=== PATIENT | male | born 1940 | race Caucasian/White ===

== ENCOUNTER 2022-03-25 23:56 | Inpatient (IN) | payer MEDICARE ==
[2022-03-26 00:56] LABS: #Eosinphils 0.1 thou/uL (0.0-0.7); #Lymphocytes 1.6 thou/uL (1.20-3.40); #Neutrophils 8.2 thou/uL (1.40-6.50); %Basophils 0.1 % (0.0-1.0); %Eosinophils 1.2 % (0.0-10.0); %Lymphocytes 14.8 % (21.0-51.0); %Monocytes 8.9 % (0.0-10.0); Hemoglobin 12.5 g/dL (14.0-18.0); Mean Corpuscular HGB CONC 32.9 g/dL (32.0-36.0); Mean Corpuscular Hemoglobin 30.3 pg (27.0-31.0); Mean Corpuscular Volume 92.2 fl (78.0-98.0); Mean Platelet Volume 6.2 fL (7.4-10.4); Platelet Count 311 10x3/uL (130-400); RBC Distribution Width 13.5 % (11.5-14.5); Red Blood Cell (RBC) Count 4.14 mill/uL (4.70-6.10); White Blood Cell (WBC) Count 10.9 10x3/uL (4.8-10.8)
[2022-03-26 00:59] LABS: ALT (SGPT) 33 U/L (8-55); AST (SGOT) 38 U/L (5-34); Albumin 3.8 g/dL (3.4-4.8); Alkaline Phosphatase 79 U/L (40-110); Anion Gap 14 mmol/L (10-20); BUN (Urea Nitrogen) 21 mg/dL (8.4-25.7); Bilirubin, Total 0.4 mg/dL (0.2-1.2); CK (CPK) 53 U/L (30-200); Calc. Creatinine Clearance 0 mL/min (70-130); Carbon Dioxide 22 mmol/L (23-31); Chloride 107 mmol/L (98-107); Estimated GFR 66; Globulin 1.8 g/dL (2.4-3.5); Glucose 123 mg/dL (83-110); Lipase 28 U/L (8-78); Protein, Total 5.6 g/dL (5.8-8.1); Sodium 139 mmol/L (136-145)
[2022-03-26 01:20] LABS: CKMB 2.2 ng/mL (0-6.6)
[2022-03-26] MEDS ORDERED: Acetaminophen 500 MG TAB ONE (02:36)
[2022-03-26] MEDS ORDERED: Aspirin 325 MG TAB ONE (02:36)
[2022-03-26 03:53] LABS: #Eosinphils 0.1 thou/uL (0.0-0.7); #Lymphocytes 1.4 thou/uL (1.20-3.40); #Monocytes 0.9 thou/uL (0.11-0.59); #Neutrophils 7.7 thou/uL (1.40-6.50); %Basophils 0.1 % (0.0-1.0); %Eosinophils 0.9 % (0.0-10.0); %Lymphocytes 13.5 % (21.0-51.0); %Monocytes 9.1 % (0.0-10.0); %Neutrophils 76.5 % (42.0-75.0); Hemoglobin 12.6 g/dL (14.0-18.0); Mean Corpuscular HGB CONC 33.1 g/dL (32.0-36.0); Mean Corpuscular Hemoglobin 30.3 pg (27.0-31.0); Mean Corpuscular Volume 91.4 fl (78.0-98.0); Mean Platelet Volume 6.1 fL (7.4-10.4); Platelet Count 302 10x3/uL (130-400); RBC Distribution Width 13.3 % (11.5-14.5); Red Blood Cell (RBC) Count 4.16 mill/uL (4.70-6.10); White Blood Cell (WBC) Count 10.1 10x3/uL (4.8-10.8)
[2022-03-26 04:13] LABS: Anion Gap 13 mmol/L (10-20); BUN (Urea Nitrogen) 20 mg/dL (8.4-25.7); Calc. Creatinine Clearance 0 mL/min (70-130); Calcium 9.1 mg/dL (7.8-10.44); Carbon Dioxide 23 mmol/L (23-31); Chloride 107 mmol/L (98-107); Estimated GFR 72; Glucose 96 mg/dL (83-110); Potassium 4.1 mmol/L (3.5-5.1); Sodium 139 mmol/L (136-145)
[2022-03-26] MEDS ORDERED: (Linaclotide [Linzess] 145 MCG Capsule) PO SCH (07:30)
[2022-03-26 07:50] LABS: Troponin I 2.295 ng/mL (< 0.028)
[2022-03-26] MEDS ORDERED: Aspirin Chewable 81 MG TAB ONE (08:47)
[2022-03-26] MEDS: Aspirin 81 mg Enteric Coated Tablet PO SCH (08:51)
[2022-03-26 08:54] LABS: Magnesium 2.2 mg/dL (1.6-2.6)
[2022-03-26] MEDS ORDERED: Ipratropium/Albuterol 3 ML NEB NEB PRN (10:01)
[2022-03-26] MEDS: Lisinopril/Hydrochlorothiazide 10 mg/12.5 mg Tablet PO SCH (10:11)
[2022-03-26] MEDS: Tamsulosin HCl 0.4 MG CAP PO SCH (10:11)
[2022-03-26] MEDS: Rosuvastatin 10 MG TAB PO SCH (10:11)
[2022-03-26 11:50] LABS: SARS-CoV-2 NAA Rapid Test Not Detected (NotDetected)
[2022-03-26] MEDS: Lidocaine 5% Patch TD SCH (15:00)
[2022-03-26] MEDS: Mometasone 200 MCG/Formoterol 5 MCG 120 PUFF INHALER INH SCH (18:35)
[2022-03-26] MEDS ORDERED: Ketorolac Tromethamine 30 MG/ML VIAL IVP SCH (22:30)
[2022-03-27] MEDS: Transdermal Patch Removal TOP SCH (00:04)
[2022-03-27 01:29] VITALS: BMI 28.0
[2022-03-27 06:04] LABS: Critical Call Chem Troponin I RESULT DECREASING; Troponin I 0.563 ng/mL (< 0.028)
[2022-03-27] MEDS: Mometasone 200 MCG/Formoterol 5 MCG 120 PUFF INHALER INH SCH ×2 (06:45→19:11)
[2022-03-27] MEDS: Tamsulosin HCl 0.4 MG CAP PO SCH (09:57)
[2022-03-27] MEDS: Lisinopril/Hydrochlorothiazide 10 mg/12.5 mg Tablet PO SCH (09:57)
[2022-03-27] MEDS: Rosuvastatin 10 MG TAB PO SCH (09:58)
[2022-03-27] MEDS: Aspirin 81 mg Enteric Coated Tablet PO SCH (09:58)
[2022-03-27] MEDS: Lidocaine 5% Patch TD SCH (12:47)
[2022-03-27] MEDS ORDERED: Polyethylene Glycol 3350 17 GM Packet PO PRN (12:59)
[2022-03-27] MEDS ORDERED: Communication Order-Pharmacy FS SCH (14:00)
[2022-03-27] MEDS ORDERED: Acetaminophen 325 MG TAB PO PRN (20:15)
[2022-03-27] MEDS: Senokot S 8.6-50 MG TAB PO SCH (20:23)
[2022-03-28] MEDS: Transdermal Patch Removal TOP SCH ×2 (00:03→21:12)
[2022-03-28 05:31] LABS: #Eosinphils 0.1 thou/uL (0.0-0.7); #Lymphocytes 2.3 thou/uL (1.20-3.40); %Basophils 0.2 % (0.0-1.0); %Eosinophils 1.4 % (0.0-10.0); %Lymphocytes 27.7 % (21.0-51.0); %Monocytes 11.3 % (0.0-10.0); %Neutrophils 59.3 % (42.0-75.0); Hemoglobin 13.3 g/dL (14.0-18.0); Mean Corpuscular HGB CONC 33.2 g/dL (32.0-36.0); Mean Corpuscular Hemoglobin 30.5 pg (27.0-31.0); Mean Platelet Volume 6.3 fL (7.4-10.4); Platelet Count 296 10x3/uL (130-400); RBC Distribution Width 13.4 % (11.5-14.5); Red Blood Cell (RBC) Count 4.36 mill/uL (4.70-6.10); White Blood Cell (WBC) Count 8.5 10x3/uL (4.8-10.8)
[2022-03-28 05:52] LABS: Anion Gap 11 mmol/L (10-20); BUN (Urea Nitrogen) 18 mg/dL (8.4-25.7); Calc. Creatinine Clearance 61 mL/min (70-130); Calcium 9.8 mg/dL (7.8-10.44); Carbon Dioxide 26 mmol/L (23-31); Cardiac Risk 2.9 (Less than 4.5); Chloride 104 mmol/L (98-107); Cholesterol 152 mg/dl (< 200 Desired); Estimated GFR 62; Glucose 95 mg/dL (83-110); HDL Cholesterol 52 mg/dL (>60 Neg Risk); LDL Cholesterol, Calculated 81 mg/dL; Potassium 4.2 mmol/L (3.5-5.1); Sodium 137 mmol/L (136-145); Triglycerides 97 mg/dL (Less than 150)
[2022-03-28] MEDS ORDERED: Sodium Chloride 0.9% 1,000 ML IV SCH ×2 (06:00→08:27)
[2022-03-28] MEDS ORDERED: Heparin 10,000 UNITS/ 10 ML VIAL ONE (06:32)
[2022-03-28] MEDS ORDERED: Lidocaine 1% (PF) 30 ML VIAL ONE ×2 (06:32→07:26)
[2022-03-28] MEDS ORDERED: Nitroglycerin 100MG/250ML BOT 0 ML ONE (06:32)
[2022-03-28] MEDS ORDERED: Midazolam HCl 2 mg/2 ml Vial ONE (07:12)
[2022-03-28] MEDS ORDERED: FENTANYL 50 MCG/ML 1 ML VIAL ONE (07:12)
[2022-03-28] MEDS: Mometasone 200 MCG/Formoterol 5 MCG 120 PUFF INHALER INH SCH ×2 (07:28→19:00)
[2022-03-28] MEDS ORDERED: Protamine Sulfate 50 MG/5 ML VIAL ONE (08:00)
[2022-03-28] MEDS ORDERED: Nitroglycerin 0.4 MG TAB (25 Tab Bottle) SL PRN (08:26)
[2022-03-28] MEDS ORDERED: Sodium Chloride 0.9% 200 ML IV PRN (08:26)
[2022-03-28] MEDS ORDERED: Acetaminophen/Codeine 30-300mg Tablet PO PRN ×2 (08:26)
[2022-03-28] MEDS: Furosemide 20 MG TAB PO SCH (09:39)
[2022-03-28] MEDS: Aspirin 81 mg Enteric Coated Tablet PO SCH (09:39)
[2022-03-28] MEDS: Tamsulosin HCl 0.4 MG CAP PO SCH (09:39)
[2022-03-28] MEDS ORDERED: HYDROcodone/Acetaminophen 5/325 mg Tablet PO PRN (09:40)
[2022-03-28] MEDS: Lisinopril 10 MG TAB PO SCH (09:41)
[2022-03-28] MEDS: Senokot S 8.6-50 MG TAB PO SCH ×2 (09:41→21:10)
[2022-03-28] MEDS: Lidocaine 5% Patch TD SCH (14:12)
[2022-03-28] MEDS: Rosuvastatin 20 MG TAB PO SCH (21:10)
[2022-03-29] MEDS: Mometasone 200 MCG/Formoterol 5 MCG 120 PUFF INHALER INH SCH ×2 (07:42→19:17)
[2022-03-29] MEDS: Aspirin 81 mg Enteric Coated Tablet PO SCH (08:49)
[2022-03-29] MEDS: Senokot S 8.6-50 MG TAB PO SCH ×2 (08:57→21:03)
[2022-03-29] MEDS: Tamsulosin HCl 0.4 MG CAP PO SCH (08:59)
[2022-03-29] MEDS ORDERED: Iopamidol 370 76% 50 ML VIAL FS ONE (09:04)
[2022-03-29] MEDS: Lisinopril 10 MG TAB PO SCH (09:10)
[2022-03-29] MEDS: Lidocaine 5% Patch TD SCH (09:11)
[2022-03-29] MEDS ORDERED: Cyclobenzaprine 10 MG TAB PO PRN (10:22)
[2022-03-29] MEDS ORDERED: Cyclobenzaprine 10 MG TAB PO SCH (10:30)
[2022-03-29] MEDS ORDERED: Ketorolac Tromethamine 30 MG/ML VIAL IVP SCH (10:30)
[2022-03-29] MEDS ORDERED: Midazolam HCl 2 mg/2 ml Vial ONE (11:41)
[2022-03-29] MEDS ORDERED: fentaNYL PF 100 MCG/2 ML SYRINGE ONE (11:41)
[2022-03-29] MEDS ORDERED: Ketamine 50 MG/ML (10ML VIAL) ONE (11:41)
[2022-03-29] MEDS ORDERED: Gentamicin 80 MG/2 ML VIAL ONE (11:48)
[2022-03-29] MEDS ORDERED: CEFAZOLIN 2 GM VIAL ONE ×2 (11:49→11:50)
[2022-03-29] MEDS ORDERED: Lidocaine 1% (PF) 30 ML VIAL ONE (11:49)
[2022-03-29] MEDS ORDERED: Ondansetron PF 4 MG/2 ML Vial ONE (12:15)
[2022-03-29] MEDS ORDERED: PROPOFOL 200 MG/20 ML VIAL ONE (12:15)
[2022-03-29] MEDS ORDERED: Lidocaine 1% PF 5 ML VIAL ONE (12:15)
[2022-03-29] MEDS ORDERED: PHENYLEPHRINE-NS 100 MCG/ML 10 ML SYRINGE ONE (12:15)
[2022-03-29] MEDS ORDERED: Morphine Sulfate 2 MG/ML SYRINGE SLOW IVP PRN (14:40)
[2022-03-29] MEDS ORDERED: Promethazine HCl 25 MG/ML VIAL IM PRN (14:40)
[2022-03-29] MEDS ORDERED: Ondansetron HCl/PF 4 MG/2 ML Vial IVP PRN (14:40)
[2022-03-29] MEDS: Furosemide 20 MG TAB PO SCH (16:22)
[2022-03-29] MEDS: Rosuvastatin 20 MG TAB PO SCH (21:03)
[2022-03-29] MEDS: Transdermal Patch Removal TOP SCH (21:04)
[2022-03-30] MEDS: Mometasone 200 MCG/Formoterol 5 MCG 120 PUFF INHALER INH SCH (07:55)
[2022-03-30] MEDS: Aspirin 81 mg Enteric Coated Tablet PO SCH (09:20)
[2022-03-30] MEDS: Senokot S 8.6-50 MG TAB PO SCH (09:20)
[2022-03-30] MEDS: Furosemide 20 MG TAB PO SCH (09:20)
[2022-03-30] MEDS: Tamsulosin HCl 0.4 MG CAP PO SCH (09:20)
[2022-03-30] MEDS: Lisinopril 10 MG TAB PO SCH (09:21)
[2022-03-30] MEDS: Lidocaine 5% Patch TD SCH (10:57)
[2022-03-30 11:39] VITALS: BP 102/68; TEMP 98.1
[2022-03-30] MEDS ORDERED: Carvedilol 3.125 MG TAB PO SCH (17:00)
== END 2022-03-30 14:50 | disposition home or self-care (01) | DRG 225 ==
LOC: ERS 23:56 → ERHOLD 03-26 02:34 → NEURO 03-26 21:32
PROVIDERS: ADMIT Family Medicine; ATTEND Family Medicine
PROC: 4A023N7 Measurement of Cardiac Sampling and Pressure, Left Heart, Percutaneous Approach (ICD-10-PCS; principal; 2022-03-28)
PROC: B2111ZZ Fluoroscopy of Multiple Coronary Arteries using Low Osmolar Contrast (ICD-10-PCS; 2022-03-28)
PROC: B2151ZZ Fluoroscopy of Left Heart using Low Osmolar Contrast (ICD-10-PCS; 2022-03-28)
PROC: 5A2204Z Restoration of Cardiac Rhythm, Single (ICD-10-PCS; 2022-03-28)
PROC: 0JH608Z Insertion of Defibrillator Generator into Chest Subcutaneous Tissue and Fascia, Open Approach (ICD-10-PCS; 2022-03-29)
PROC: 02H60KZ Insertion of Defibrillator Lead into Right Atrium, Open Approach (ICD-10-PCS; 2022-03-29)
PROC: 02HK0KZ Insertion of Defibrillator Lead into Right Ventricle, Open Approach (ICD-10-PCS; 2022-03-29)
DX: I47.20 Ventricular tachycardia, unspecified (principal); Z20.822 Contact with and (suspected) exposure to COVID-19; I10 Essential (primary) hypertension; K21.9 Gastro-esophageal reflux disease without esophagitis; E78.5 Hyperlipidemia, unspecified; F17.210 Nicotine dependence, cigarettes, uncomplicated; J44.9 Chronic obstructive pulmonary disease, unspecified; I48.0 Paroxysmal atrial fibrillation; I25.10 Atherosclerotic heart disease of native coronary artery without angina pectoris; I49.5 Sick sinus syndrome; Z79.82 Long term (current) use of aspirin; Z79.51 Long term (current) use of inhaled steroids; Z79.899 Other long term (current) drug therapy; Z79.52 Long term (current) use of systemic steroids
CPT/HCPCS: 33249; 36415; 71045; 80048; 80053; 80061; 82550; 82553; 83690; 83735; 83880; 84443; 84484; 85025; 85347; 93005; 93306; 93460; 93641; 94760; 99152; 99153; C1751; C1769; C1777; C1894; C1898; J1580; J1644; J1650; J1885; J2001; J2250; J2405; J2704; J2720; J3010; J7050; Q9967; U0002

== ENCOUNTER 2022-11-30 13:04 | Outpatient (CLI) | payer MEDICARE | END 2022-11-30 13:05 | disposition home or self-care (01) | LOC: RAD 13:04 | PROVIDERS: ATTEND Internal Medicine Critical Care Medicine | DX: R06.00 Dyspnea, unspecified (principal); J98.4 Other disorders of lung | CPT/HCPCS: 71046 ==

== ENCOUNTER 2022-12-11 08:30 | Outpatient (CLI) | payer MEDICARE ==
[2022-12-11] MEDS ORDERED: Iopamidol 370 76% 100 ML VIAL ONE (09:51)
== END 2022-12-11 08:31 | disposition home or self-care (01) ==
LOC: CT 08:30
PROVIDERS: ATTEND Thoracic Surgery (Cardiothoracic Vascular Surgery)
DX: I71.40 Abdominal aortic aneurysm, without rupture, unspecified (principal); K44.9 Diaphragmatic hernia without obstruction or gangrene; D35.02 Benign neoplasm of left adrenal gland; N28.1 Cyst of kidney, acquired; N40.0 Benign prostatic hyperplasia without lower urinary tract symptoms
CPT/HCPCS: 74174; 82565; Q9967

== ENCOUNTER 2023-02-06 12:09 | Outpatient (CLI) | payer MEDICARE | END 2023-02-06 12:10 | disposition home or self-care (01) | LOC: RAD 12:09 | PROVIDERS: ATTEND Internal Medicine Critical Care Medicine | DX: R06.00 Dyspnea, unspecified (principal) | CPT/HCPCS: 36415; 71046; 82550; 84443 ==

== ENCOUNTER 2023-08-21 07:06 | Day surgery (SDC) | payer MEDICARE ==
[2023-08-20 10:11] VITALS: BMI 27.5
[2023-08-21] MEDS ORDERED: Lidocaine 2% PF 5 ML VIAL ONE (10:33)
[2023-08-21] MEDS ORDERED: PHENYLEPHRINE-NS 100 MCG/ML 10 ML SYRINGE ONE (10:46)
[2023-08-21] MEDS ORDERED: PROPOFOL 200 MG/20 ML VIAL ONE (10:46)
== END 2023-08-21 11:44 | disposition home or self-care (01) ==
LOC: SDC 07:06
PROVIDERS: ATTEND Internal Medicine Gastroenterology
PROC: 0DB68ZX Excision of Stomach, Via Natural or Artificial Opening Endoscopic, Diagnostic (ICD-10-PCS; principal; 2023-08-21)
DX: K29.50 Unspecified chronic gastritis without bleeding (principal); K31.89 Other diseases of stomach and duodenum; K44.9 Diaphragmatic hernia without obstruction or gangrene; I10 Essential (primary) hypertension; E78.5 Hyperlipidemia, unspecified; J44.9 Chronic obstructive pulmonary disease, unspecified; I48.91 Unspecified atrial fibrillation; Z95.810 Presence of automatic (implantable) cardiac defibrillator; Z79.82 Long term (current) use of aspirin; Z79.899 Other long term (current) drug therapy
CPT/HCPCS: 43239; J2001; 88305; J2704

== ENCOUNTER 2023-12-06 18:18 | Inpatient (IN) | payer MEDICARE ==
[~2023-12-06 18:18] MED LIST: Acetaminophen 325 MG TAB PO PRN; Ondansetron ODT 4 MG TAB SL PRN; Ondansetron PF 4 MG/2 ML Vial IVP PRN
[2023-12-06 22:27] VITALS: BMI 26.7
[2023-12-06] MEDS: Metoprolol Tartrate 5 MG (5 mL) VIAL IVP PRN (22:51)
[2023-12-07 03:50] LABS: #Basophils 0.06 10x3/uL (0.0-0.2); %Basophils 0.8 % (0.0-1.0); %Lymphocytes 27.1 % (21.0-51.0); %Monocytes 12.7 % (0.0-10.0); %Neutrophils 57.1 % (42.0-75.0); Hemoglobin 11.8 g/dL (14.0-18.0); Mean Corpuscular HGB CONC 31.1 g/dL (32.0-36.0); Mean Corpuscular Hemoglobin 25.9 pg (27.0-31.0); Mean Corpuscular Volume 83.3 fL (78.0-98.0); Mean Platelet Volume 9.4 fL (7.4-10.4); Platelet Count 222 10x3/uL (130-400); RBC Distribution Width 15.8 % (11.5-14.5); Red Blood Cell (RBC) Count 4.56 mill/uL (4.70-6.10)
[2023-12-07 04:06] LABS: Anion Gap 11 mmol/L (10-20); BUN (Urea Nitrogen) 22 mg/dL (8.4-25.7); Calc. Creatinine Clearance 56 mL/min (70-130); Carbon Dioxide 24 mmol/L (23-31); Chloride 111 mmol/L (98-107); Estimated GFR 61; Glucose 91 mg/dL (83-110); Sodium 142 mmol/L (136-145)
[2023-12-07] MEDS: Enoxaparin 80 MG (0.8 mL) SYRINGE SC SCH (06:53)
[2023-12-07] MEDS ORDERED: Enoxaparin 40 MG (0.4 mL) SYRINGE SC SCH (09:00)
[2023-12-07] MEDS ORDERED: dilTIAZem 125 MG in Sodium Chloride 0.9% 100 ML IVPB SCH (10:00)
[2023-12-07] MEDS: Sacubitril 24MG/Valsartan 26 MG TAB PO SCH (10:52)
[2023-12-07] MEDS: Dronedarone HCl 400 MG TAB PO SCH ×2 (10:53→17:41)
[2023-12-07] MEDS: Clopidogrel Bisulfate 75 MG TAB PO SCH (10:53)
[2023-12-07] MEDS ORDERED: Albuterol 2.5 MG (3 mL) NEB NEB PRN (11:53)
[2023-12-07] MEDS ORDERED: Linaclotide [Linzess] 145 MCG Capsule PO PRN (11:53)
[2023-12-07] MEDS: Furosemide 20 MG (2 mL) VIAL SLOW IVP SCH (13:40)
[2023-12-07] MEDS: Diltiazem HCl/D5W 125 MG in Premix 1 BAG IVPB SCH (13:40)
[2023-12-07] MEDS: Pantoprazole 40 MG VIAL IVP SCH (20:10)
[2023-12-07] MEDS: Rosuvastatin 10 MG TAB PO SCH (20:10)
[2023-12-07] MEDS: Tamsulosin HCl 0.4 MG CAP PO SCH (20:10)
[2023-12-07] MEDS ORDERED: Enoxaparin 80 MG (0.8 mL) SYRINGE SC SCH (21:00)
[2023-12-08 03:45] LABS: #Basophils 0.04 10x3/uL (0.0-0.2); #Eosinophils Less than 0.03 10x3/uL (0.0-0.7); %Basophils 0.3 % (0.0-1.0); %Eosinophils 0.1 % (0.0-10.0); %Monocytes 7.3 % (0.0-10.0); %Neutrophils 83.9 % (42.0-75.0); Hematocrit 38.1 % (42.0-52.0); Hemoglobin 11.9 g/dL (14.0-18.0); Mean Corpuscular HGB CONC 31.2 g/dL (32.0-36.0); Mean Corpuscular Hemoglobin 25.8 pg (27.0-31.0); Mean Corpuscular Volume 82.6 fL (78.0-98.0); Mean Platelet Volume 9.3 fL (7.4-10.4); Platelet Count 208 10x3/uL (130-400); RBC Distribution Width 15.7 % (11.5-14.5); Red Blood Cell (RBC) Count 4.61 mill/uL (4.70-6.10)
[2023-12-08 04:01] LABS: ALT (SGPT) 10 U/L (8-55); AST (SGOT) 11 U/L (5-34); Albumin 3.6 g/dL (3.4-4.8); Alkaline Phosphatase 97 U/L (40-110); Anion Gap 14 mmol/L (10-20); BUN (Urea Nitrogen) 19 mg/dL (8.4-25.7); Bilirubin, Total 0.6 mg/dL (0.2-1.2); Calc. Creatinine Clearance 55 mL/min (70-130); Carbon Dioxide 23 mmol/L (23-31); Chloride 105 mmol/L (98-107); Estimated GFR 60; Globulin 2.4 g/dL (2.4-3.5); Glucose 106 mg/dL (83-110); Potassium 3.9 mmol/L (3.5-5.1); Sodium 138 mmol/L (136-145)
[2023-12-08] MEDS: Empagliflozin 10 MG TAB PO SCH (07:53)
[2023-12-08] MEDS: Enoxaparin 40 MG (0.4 mL) SYRINGE SC SCH (08:42)
[2023-12-08] MEDS: Ranolazine ER 500 MG TAB PO SCH (08:43)
[2023-12-08] MEDS: Pantoprazole 40 MG VIAL IVP SCH (08:44)
[2023-12-08] MEDS ORDERED: Empagliflozin 10 MG TAB PO SCH (09:00)
[2023-12-08] MEDS: Furosemide 10 MG/ML Oral Soln PO SCH (09:32)
[2023-12-08] MEDS ORDERED: Acetaminophen 325 MG (10.15 ML) UDCUP PO SCH (10:00)
[2023-12-08 10:14] LABS: Magnesium 2.1 mg/dL (1.6-2.6)
[2023-12-08] MEDS: Acetaminophen 650 MG/20.3 ML UDCUP PO SCH (10:32)
[2023-12-09 04:58] LABS: #Basophils Less than 0.03 10x3/uL (0.0-0.2); %Basophils 0.2 % (0.0-1.0); %Eosinophils 0.3 % (0.0-10.0); %Lymphocytes 9.1 % (21.0-51.0); %Monocytes 8.9 % (0.0-10.0); %Neutrophils 81.1 % (42.0-75.0); Hematocrit 35.6 % (42.0-52.0); Mean Corpuscular HGB CONC 30.9 g/dL (32.0-36.0); Mean Corpuscular Hemoglobin 26.3 pg (27.0-31.0); Mean Corpuscular Volume 85.2 fL (78.0-98.0); Mean Platelet Volume 9.4 fL (7.4-10.4); Platelet Count 208 10x3/uL (130-400); RBC Distribution Width 15.5 % (11.5-14.5); Red Blood Cell (RBC) Count 4.18 mill/uL (4.70-6.10)
[2023-12-09 05:14] LABS: Anion Gap 13 mmol/L (10-20); BUN (Urea Nitrogen) 20 mg/dL (8.4-25.7); Calc. Creatinine Clearance 52 mL/min (70-130); Calcium 8.8 mg/dL (7.8-10.44); Carbon Dioxide 23 mmol/L (23-31); Chloride 105 mmol/L (98-107); Estimated GFR 57; Glucose 97 mg/dL (83-110); Potassium 3.8 mmol/L (3.5-5.1); Sodium 137 mmol/L (136-145)
[2023-12-09] MEDS: Pantoprazole DR 40 MG TAB PO SCH (08:58)
[2023-12-09] MEDS: FLU (Fluad Triv) TS24-25 (65UP)/MF59C/PF 45 MCG/0.5 ML Syringe IM ONE (09:00)
[2023-12-09] MEDS: Acetaminophen 325 MG TAB PO PRN (13:53)
[2023-12-10 05:33] LABS: #Basophils 0.04 10x3/uL (0.0-0.2); %Basophils 0.4 % (0.0-1.0); %Eosinophils 1.2 % (0.0-10.0); %Lymphocytes 12.7 % (21.0-51.0); %Monocytes 9.1 % (0.0-10.0); %Neutrophils 76.2 % (42.0-75.0); Hematocrit 34.1 % (42.0-52.0); Hemoglobin 10.6 g/dL (14.0-18.0); Mean Corpuscular HGB CONC 31.1 g/dL (32.0-36.0); Mean Corpuscular Hemoglobin 26.6 pg (27.0-31.0); Mean Corpuscular Volume 85.5 fL (78.0-98.0); Mean Platelet Volume 9.6 fL (7.4-10.4); Platelet Count 222 10x3/uL (130-400); RBC Distribution Width 15.6 % (11.5-14.5); Red Blood Cell (RBC) Count 3.99 mill/uL (4.70-6.10)
[2023-12-10 05:39] LABS: Anion Gap 12 mmol/L (10-20); BUN (Urea Nitrogen) 18 mg/dL (8.4-25.7); Calc. Creatinine Clearance 57 mL/min (70-130); Calcium 8.8 mg/dL (7.8-10.44); Carbon Dioxide 24 mmol/L (23-31); Chloride 106 mmol/L (98-107); Estimated GFR 63; Glucose 86 mg/dL (83-110); Potassium 3.7 mmol/L (3.5-5.1); Sodium 138 mmol/L (136-145)
[2023-12-10] MEDS: dilTIAZem CD 120 MG CAP PO SCH (09:18)
[2023-12-10 12:08] VITALS: BP 107/61; TEMP 97.7
== END 2023-12-10 14:57 | disposition home or self-care (01) | DRG 280 ==
LOC: 2SE 21:34 → OBSVTOIN 12-07 11:49
PROVIDERS: ADMIT Student in an Organized Health Care Education/Training Program; ATTEND Internal Medicine
DX: I48.0 Paroxysmal atrial fibrillation (principal); I50.33 Acute on chronic diastolic (congestive) heart failure; I21.4 Non-ST elevation (NSTEMI) myocardial infarction; I11.0 Hypertensive heart disease with heart failure; J44.9 Chronic obstructive pulmonary disease, unspecified; I27.20 Pulmonary hypertension, unspecified; I25.10 Atherosclerotic heart disease of native coronary artery without angina pectoris; Z79.899 Other long term (current) drug therapy; F17.210 Nicotine dependence, cigarettes, uncomplicated
CPT/HCPCS: 36415; 36416; 80048; 80053; 83735; 83880; 85025; 90653; 93005; 93010; 93306; 96372; 96374; G0378; J1650; J1940; J2470

== ENCOUNTER 2024-01-15 11:43 | Outpatient (CLI) | payer MEDICARE | END 2024-01-15 11:44 | disposition home or self-care (01) | LOC: CT 11:43 | PROVIDERS: ATTEND Thoracic Surgery (Cardiothoracic Vascular Surgery) | DX: I71.40 Abdominal aortic aneurysm, without rupture, unspecified (principal); K44.9 Diaphragmatic hernia without obstruction or gangrene; N40.0 Benign prostatic hyperplasia without lower urinary tract symptoms; E27.8 Other specified disorders of adrenal gland | CPT/HCPCS: 74174 ==

== ENCOUNTER 2024-02-07 10:58 | Outpatient (CLI) | payer MEDICARE | END 2024-02-07 10:59 | disposition home or self-care (01) | LOC: RAD 10:58 | PROVIDERS: ATTEND Internal Medicine Critical Care Medicine | DX: R06.00 Dyspnea, unspecified (principal) | CPT/HCPCS: 71046 ==

== ENCOUNTER 2024-03-02 16:08 | Inpatient (IN) | payer MEDICARE ==
[2024-03-02 17:10] VITALS: BMI 27.1
[2024-03-02] MEDS ORDERED: Acetaminophen 325 MG TAB PO PRN (17:33)
[2024-03-02] MEDS ORDERED: Acetaminophen 650 MG Suppository PR PRN (17:33)
[2024-03-02] MEDS ORDERED: Ondansetron ODT 4 MG TAB PO PRN (17:33)
[2024-03-02] MEDS ORDERED: Ipratropium/Albuterol 3 ML NEB NEB PRN (17:43)
[2024-03-02] MEDS: Ipratropium/Albuterol 3 ML NEB NEB SCH (18:55)
[2024-03-02] MEDS: Furosemide 40 MG (4 mL) VIAL SLOW IVP SCH (19:07)
[2024-03-02] MEDS: methylPREDNISolone Sod Succ 40 MG VIAL IVP SCH (19:07)
[2024-03-02] MEDS ORDERED: Famotidine 20 MG TAB PO SCH (21:00)
[2024-03-02] MEDS ORDERED: Famotidine/PF 20 mg/2ml Vial SLOW IVP SCH (21:00)
[2024-03-02] MEDS: Tamsulosin HCl 0.4 MG CAP PO SCH (21:20)
[2024-03-02] MEDS: guaiFENesin/DM ER PO SCH (21:20)
[2024-03-02 21:47] LABS: Legionella Urinary Ag Negative (Negative); Strep pneumo Urine Ag NEGATIVE (NEGATIVE)
[2024-03-03] MEDS: Melatonin 3 MG TAB PO PRN (00:47)
[2024-03-03 04:48] LABS: #Basophils Less than 0.03 10x3/uL (0.0-0.2); #Eosinophils Less than 0.03 10x3/uL (0.0-0.7); %Lymphocytes 6.5 % (21.0-51.0); %Monocytes 1.4 % (0.0-10.0); %Neutrophils 91.3 % (42.0-75.0); Hematocrit 38.1 % (42.0-52.0); Hemoglobin 11.6 g/dL (14.0-18.0); Mean Corpuscular HGB CONC 30.4 g/dL (32.0-36.0); Mean Corpuscular Hemoglobin 25.3 pg (27.0-31.0); Mean Corpuscular Volume 83.2 fL (78.0-98.0); Mean Platelet Volume 9.1 fL (7.4-10.4); Platelet Count 304 10x3/uL (130-400); RBC Distribution Width 15.1 % (11.5-14.5); Red Blood Cell (RBC) Count 4.58 mill/uL (4.70-6.10)
[2024-03-03 04:54] LABS: Anion Gap 12 mmol/L (10-20); BUN (Urea Nitrogen) 21 mg/dL (8.4-25.7); Calc. Creatinine Clearance 61 mL/min (70-130); Calcium 8.8 mg/dL (7.8-10.44); Carbon Dioxide 27 mmol/L (23-31); Chloride 104 mmol/L (98-107); Estimated GFR 66; Glucose 138 mg/dL (83-110); Potassium 4.3 mmol/L (3.5-5.1); Sodium 139 mmol/L (136-145)
[2024-03-03] MEDS: Furosemide 20 MG TAB PO SCH (08:22)
[2024-03-03] MEDS: Ranolazine ER 500 MG TAB PO SCH (08:22)
[2024-03-03] MEDS: Empagliflozin 10 MG TAB PO SCH (08:22)
[2024-03-03] MEDS: Clopidogrel Bisulfate 75 MG TAB PO SCH (08:22)
[2024-03-03] MEDS: Rosuvastatin 10 MG TAB PO SCH (08:22)
[2024-03-03] MEDS: Pantoprazole 40 MG DR.TAB PO SCH (08:22)
[2024-03-03] MEDS: dilTIAZem CD 120 MG CAP PO SCH (08:23)
[2024-03-03] MEDS: Azithromycin 500 MG in Sodium Chloride 0.9% 250 ML 250 ML IVPB SCH (08:23)
[2024-03-03] MEDS: cefTRIAXone\\ROCEPHIN 1 GM in Sodium Chloride 0.9% 100 ML IVPB SCH (08:23)
[2024-03-03] MEDS ORDERED: dilTIAZem CD 120 MG CAP PO SCH (09:00)
[2024-03-03] MEDS: Furosemide 40 MG TAB PO SCH (10:18)
[2024-03-04 04:44] LABS: #Basophils Less than 0.03 10x3/uL (0.0-0.2); #Eosinophils Less than 0.03 10x3/uL (0.0-0.7); %Basophils 0.1 % (0.0-1.0); %Lymphocytes 6.3 % (21.0-51.0); %Monocytes 4.5 % (0.0-10.0); %Neutrophils 88.5 % (42.0-75.0); Hematocrit 36.1 % (42.0-52.0); Hemoglobin 11.3 g/dL (14.0-18.0); Mean Corpuscular HGB CONC 31.3 g/dL (32.0-36.0); Mean Corpuscular Hemoglobin 25.5 pg (27.0-31.0); Mean Corpuscular Volume 81.5 fL (78.0-98.0); Mean Platelet Volume 9.3 fL (7.4-10.4); Platelet Count 305 10x3/uL (130-400); Red Blood Cell (RBC) Count 4.43 mill/uL (4.70-6.10)
[2024-03-04 05:01] LABS: Anion Gap 10 mmol/L (10-20); BUN (Urea Nitrogen) 24 mg/dL (8.4-25.7); Calc. Creatinine Clearance 63 mL/min (70-130); Calcium 8.9 mg/dL (7.8-10.44); Carbon Dioxide 29 mmol/L (23-31); Chloride 103 mmol/L (98-107); Estimated GFR 76; Glucose 117 mg/dL (83-110); Magnesium 2.4 mg/dL (1.6-2.6); Potassium 4.3 mmol/L (3.5-5.1); Sodium 138 mmol/L (136-145)
[2024-03-04] MEDS ORDERED: Furosemide 40 MG TAB PO SCH (07:30)
[2024-03-04] MEDS: methylPREDNISolone Sod Succ 40 MG VIAL IVP SCH (09:22)
[2024-03-04] MEDS: Furosemide 20 MG TAB PO SCH (09:29)
[2024-03-04 11:59] VITALS: BMI 25.4
[2024-03-04 12:01] VITALS: BP 116/57; TEMP 97.6
== END 2024-03-04 15:36 | disposition home or self-care (01) | DRG 871 ==
LOC: 2NO 16:08 → OBSVTOIN 18:26
PROVIDERS: ADMIT Family Medicine; ATTEND Internal Medicine
DX: A41.9 Sepsis, unspecified organism (principal); J15.69 Pneumonia due to other Gram-negative bacteria; J44.1 Chronic obstructive pulmonary disease with (acute) exacerbation; J44.0 Chronic obstructive pulmonary disease with (acute) lower respiratory infection; I12.0 Hypertensive chronic kidney disease with stage 5 chronic kidney disease or end stage renal disease; R65.20 Severe sepsis without septic shock; I25.10 Atherosclerotic heart disease of native coronary artery without angina pectoris; E78.5 Hyperlipidemia, unspecified; I48.0 Paroxysmal atrial fibrillation; D53.9 Nutritional anemia, unspecified; F17.210 Nicotine dependence, cigarettes, uncomplicated; N18.2 Chronic kidney disease, stage 2 (mild); Z95.5 Presence of coronary angioplasty implant and graft; Z95.0 Presence of cardiac pacemaker; Z79.899 Other long term (current) drug therapy
CPT/HCPCS: 36415; 71045; 71275; 80048; 80053; 83605; 83735; 83880; 84145; 84484; 85025; 87428; 87449; 87633; 87899; 93005; 94640; 96374; 96375; G0378; J0456; J0696; J1940; J2919; J3475; J7050; J7611; J7620; Q9967